=== PATIENT | male | born 1945 | race African-American/Black ===

== ENCOUNTER 2018-12-15 11:48 | Emergency (ER) | payer MEDICARE ==
[~2018-12-15] VITALS: Ht 180.3 cm; Wt 118.2 kg
[2018-12-15 11:51] VITALS: Ht 180.3 cm; Wt 118.2 kg
[2018-12-15] MEDS ORDERED: CYCLOBENZAPRINE10 MG PO (17:34)
[2018-12-15] MEDS ORDERED: HYDROCODON-ACE1 EAC2 PO (17:34)
[2018-12-15 18:02] VITALS: BP 120/71
== END 2018-12-15 18:02 | disposition home or self-care (01) ==
LOC: D.ER 11:48
DX: S32.039A Unspecified fracture of third lumbar vertebra, initial encounter for closed fracture (principal); X58.XXXA Exposure to other specified factors, initial encounter; Y93.89 Activity, other specified; Y92.89 Other specified places as the place of occurrence of the external cause; F17.200 Nicotine dependence, unspecified, uncomplicated